=== PATIENT | female | born 1985 | race Caucasian/White ===

== ENCOUNTER 2019-10-22 15:28 | Emergency (ER) | payer OTHER ==
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
[2019-10-22] MEDS ORDERED: IBUPROFEN 600 MG TABLET (FP) PO ONE (15:42)
[2019-10-22 16:18] VITALS: BP 111/59; PULSE 75; TEMP 98.3; BMI 32.1
== END 2019-10-22 15:57 | disposition home or self-care (01) ==
LOC: FER 15:28
DX: S39.012A Strain of muscle, fascia and tendon of lower back, initial encounter (principal)
CPT/HCPCS: 99283-25